=== PATIENT | male | born 1940 | race Caucasian/White ===

== ENCOUNTER 2017-05-09 09:11 | Outpatient (CLI) | payer MEDICARE ==
[2017-05-09 11:29] LABS: BILIRUBIN,URINE NEGATIVE (NEGATIVE); PH,URINE 6.5 PH (5.0-7.5)
[2017-05-09 11:41] LABS: ALBUMIN/GLOBULIN RATIO 1.3 (1.0-2.2); BILIRUBIN,TOTAL 0.9 mg/dL (0.2-1.0); BUN - BLOOD UREA NITROGEN 26 mg/dL (6-20); CALCIUM 8.9 mg/dL (8.5-10.3); CARBON DIOXIDE - CO2 28 mmol/L (21-32); CHLORIDE 100 mmol/L (101-111); CHOL/HDL RATIO 3.2 (<5.0); CHOLESTEROL 188 mg/dL; CREATININE 1.1 mg/dL (0.6-1.2); GFR - MDRD 65 (>89); GLUCOSE 84 mg/dL (70-100); HDL CHOLESTEROL 59 mg/dL; LDL/HDL RATIO 1.9 (<3.6); POTASSIUM 4.1 mmol/L (3.5-5.0); SODIUM 136 mmol/L (135-145); TOTAL PROTEIN 6.9 g/dL (6.7-8.2); TRIGLYCERIDES 69 mg/dL; VLDL CHOLESTEROL 14 mg/dL; WBC,URINE 0-3 /HPF (0-3)
== END 2017-05-09 23:59 ==
LOC: LAB.F 09:11
PROVIDERS: ATTEND Family Medicine
DX: I10 Essential (primary) hypertension (principal)
CPT/HCPCS: 36415; 80053; 80061; 81001; 84153

== ENCOUNTER 2017-06-12 10:40 | Outpatient (CLI) | payer MEDICARE ==
[2017-06-12] MEDS ORDERED: IOPAMIDOL-300 100 ML VIAL IVP ONE (12:10)
--- NOTE | 2017-06-13 10:30 | CT Report ---
CT IVP: 06/12/2017 Patient has microscopic hematuria. TECHNIQUE: Noncontrast CT exam was done at 5 x 5 mm intervals in axial, coronal and sagittal reconst ruction images. The patient then received 100 mL of Isovue-300 IV. A CAT scan of the kidneys was ob tained during the corticomedullary phase and then a CAT scan of the urinary tract during the pyelogra m phase. FINDINGS: Noncontrast CT exam of the urinary tract showed no calculi within the urinary tract. Righ t kidney demonstrates two benign cysts in its upper pole, a small cyst measuring 0.6 cm, and a larger cyst measuring 3.9 cm. There is a third small cyst in the right kidney within its mid aspect measur ing 0.6 cm, the CT number of the noncontrast study and 8.9 on contrast enhanced study. Left kidney also shows several cysts. There are at least four cysts in the mid to inferior aspect of the left kidney. They measure 0.3 cm, 1.2 cm, 1.7 cm, and 3.6 cm. The two largest cysts have CT nu mbers of 10.5 and 8.7 on noncontrast exam and 6.5 and 10.5 on contrast enhanced exams. The CT number s of the cysts that can be measured all indicate that they are of benign etiology. Each pyelocalyceal system appears normal. The ureters also appear normal. Bladder appears normal. Patient's prostate appears to be at least mildly enlarged. Adrenal glands are normal. Liver, spleen, pancreas show no obvious abnormality. Gallbladder shows n o wall thickening. The common hepatic and common bile ducts appear normal. Periaortic and paracaval regions show vascular calcification in the abdominal aorta and its iliac bra nches. No aneurysm is seen. Bowel gas pattern demonstrates a small hiatal hernia in the inferior mediastinum. Small bowel appear s normal including the terminal ileum. Colon shows normal appendix. Sigmoid colon demonstrates mild diverticulosis. Bones demonstrate anterior spurring in the lumbar spine. As compared to patient's preceding exam from 08/23/2013, only changes noted are that there has been a n increase in size in the three largest renal cysts noted. On preceding exam, the largest cyst in th e right kidney measured 2.8 cm. The two largest cysts in the left kidney measured 1.5 cm and 1.6 cm, respectively. IMPRESSION: PRESENT EXAM SHOWS NO EXPLANATION FOR PATIENT'S HEMATURIA. IT DEMONSTRATES THE FOLLOWIN . SEVERAL BENIGN CYSTS ARE NOTED IN EACH KIDNEY. THREE OF THESE CYSTS APPEAR LARGER THAN ON PRECED ING EXAM DATED 08/23/2013. 2. MILD TO MODERATE PROSTATIC ENLARGEMENT, UNCHANGED COMPARED TO PRECEDING EXAM. 3. SMALL HIATAL HERNIA. JOB #: [id number] EXT JOB #:[id number]
== END 2017-06-12 10:41 | disposition home or self-care (01) ==
LOC: LAB 10:40
PROVIDERS: ATTEND Family Medicine
DX: R31.9 Hematuria, unspecified (principal); Q61.02 Congenital multiple renal cysts; K44.9 Diaphragmatic hernia without obstruction or gangrene
CPT/HCPCS: 36415; 74178; 82565; Q9967

== ENCOUNTER 2018-05-19 08:14 | Outpatient (CLI) | payer MEDICARE ==
[2018-05-19 10:57] LABS: BILIRUBIN,URINE NEGATIVE (NEGATIVE); GLUCOSE, URINE (UA) NEGATIVE (NEGATIVE); KETONES,URINE (UA) NEGATIVE (NEGATIVE); LEUKOCYTE ESTERASE, URINE NEGATIVE (NEGATIVE); NITRITE,URINE NEGATIVE (NEGATIVE); OCCULT BLOOD,URINE TRACE-INTA (NEGATIVE); PH,URINE 6.5 PH (5.0-7.5); PROTEIN,URINE NEGATIVE (NEGATIVE); UROBILINOGEN,URINE 0.2 (NORMAL) E.U./dL (NORMAL)
[2018-05-19 11:09] LABS: ALBUMIN 3.8 g/dL (3.2-5.5); ALBUMIN/GLOBULIN RATIO 1.2 (1.0-2.2); ALKALINE PHOSPHATASE 52 IU/L (42-121); ALT ALANINE AMINOTRANSFERASE 15 IU/L (10-60); AST ASPARTATE AMINOTRANSFERASE 19 IU/L (10-42); BILIRUBIN,TOTAL 0.8 mg/dL (0.2-1.0); BUN - BLOOD UREA NITROGEN 19 mg/dL (6-20); CALCIUM 8.8 mg/dL (8.5-10.3); CARBON DIOXIDE - CO2 28 mmol/L (21-32); CHLORIDE 101 mmol/L (101-111); CHOL/HDL RATIO 2.7 (<5.0); CHOLESTEROL 164 mg/dL; CREATININE 0.9 mg/dL (0.6-1.2); GFR - MDRD 82 (>89); GLUCOSE 90 mg/dL (70-100); HDL CHOLESTEROL 61 mg/dL; LDL CHOLESTEROL,CALCULATED 92 mg/dL; LDL/HDL RATIO 1.5 (<3.6); SODIUM 136 mmol/L (135-145); VLDL CHOLESTEROL 11 mg/dL
[2018-05-19 11:10] LABS: BACTERIA,URINE Few /HPF (None Seen); CLARITY,URINE CLEAR (CLEAR); RBC,URINE None Seen /HPF (0-5); SQUAMOUS EPITHELIAL CELL,UR MOD Squamous (<= Few)
== END 2018-05-19 08:15 | disposition home or self-care (01) ==
LOC: LAB.F 08:14
PROVIDERS: ATTEND Family Medicine
DX: C61 Malignant neoplasm of prostate (principal); I10 Essential (primary) hypertension; E78.5 Hyperlipidemia, unspecified
CPT/HCPCS: 36415; 80053; 80061; 81001; 83721; 84153

== ENCOUNTER 2018-07-06 08:03 | Outpatient (CLI) | payer MEDICARE ==
[2018-07-06 12:12] LABS: CALCIUM 9.3 mg/dL (8.5-10.3); CREATININE 0.9 mg/dL (0.6-1.2)
== END 2018-07-06 08:04 | disposition home or self-care (01) ==
LOC: LAB.F 08:03
PROVIDERS: ATTEND Family Medicine
DX: I10 Essential (primary) hypertension (principal)
CPT/HCPCS: 36415; 80048

== ENCOUNTER 2018-08-31 11:28 | Day surgery (SDC) | payer MEDICARE ==
[2018-08-31] MEDS ORDERED: LACTATED RINGERS 1,000 ML IV ONE ×2 (11:40)
[2018-08-31] MEDS ORDERED: MIDAZOLAM 2 MG/2 ML VIAL IVP ONE (12:36)
[2018-08-31] MEDS ORDERED: fentaNYL 100 MCG/2 ML VIAL IVP ONE (12:36)
[2018-08-31 13:42] VITALS: BP 118/75
== END 2018-08-31 11:29 | disposition home or self-care (01) ==
LOC: SDS 11:28
PROVIDERS: ATTEND Surgery
PROC: 0DJD8ZZ Inspection of Lower Intestinal Tract, Via Natural or Artificial Opening Endoscopic (ICD-10-PCS; principal; 2018-08-31 12:45)
DX: Z12.11 Encounter for screening for malignant neoplasm of colon (principal); I10 Essential (primary) hypertension; Z86.010 Personal history of colon polyps; K57.30 Diverticulosis of large intestine without perforation or abscess without bleeding; K64.8 Other hemorrhoids; E78.5 Hyperlipidemia, unspecified; Z85.46 Personal history of malignant neoplasm of prostate; Z87.891 Personal history of nicotine dependence
CPT/HCPCS: G0121; J7120

== ENCOUNTER 2018-12-19 15:11 | Emergency (ER) | payer MEDICARE ==
[2018-12-19] MEDS ORDERED: BUPIVACAINE 0.5% PF 10 ML VIAL SUBQ STA (15:52)
--- NOTE | 2018-12-19 15:55 | ED Physician Documentation ---
PD HPI UPPER EXT INJURY - Stated complaint Stated Complaint: LT MIDDLE FINGER VS SAW - Chief complaint Chief Complaint: Laceration - History obtained from History obtained from: Patient, Family - History of Present Illness Location: Left, Finger (ring) Type of injury: Laceration Where injury occurred: Home Timing - onset: Today Timing - duration: Minutes Timing - details: Abrupt onset, Still present Improved by: Rest, Immobilization Worsened by: Moving, Palpating Associated symptoms: No: Weakness, Numbness, Tingling Contributing factors: No: Anticoagulated Similar symptoms before: Has not had sx before Recently seen: Not recently seen - Additonal information Additional information: 78-year-old male was pushing a board through his table saw with his left hand when he pushed it a bit too far right into the blade and has a laceration of the left ring finger. He has a lot of maceration of the tissue and there is missing skin. Review of Systems Constitutional: denies: Fever Eyes: denies: Decreased vision Ears: denies: Ear pain Nose: denies: Congestion Throat: denies: Oral lesions / sores Respiratory: denies: Cough GI: denies: Vomiting Skin: reports: Laceration (s) Musculoskeletal: reports: Extremity pain. denies: Neck pain, Back pain PD PAST MEDICAL HISTORY - Past Medical History Past Medical History: Yes Cardiovascular: Hypertension, High cholesterol Respiratory: Asthma Endocrine/Autoimmune: None GI: Colon polyps : Benign prostate hypertrophy HEENT: Glaucoma Psych: None Musculoskeletal: None Derm: None - Past Surgical History Past Surgical History: Yes General: Colonoscopy Ortho: Arthroscopic surgery - Present Medications Home Medications: Ambulatory Orders Medication Instructions Recorded Confirmed Felodipine [Felodipine ER] 10 mg PO DAILY 12/20/13 08/31/18 Latanoprost 1 drops EACHEYE DAILY 12/20/13 08/31/18 Simvastatin 40 mg PO QPM 12/20/13 08/31/18 Timolol [Betimol] 1 drops EACHEYE BID 12/20/13 08/31/18 Losartan Potassium 25 mg PO DAILY 08/28/18 08/31/18 - Allergies Allergies/Adverse Reactions: Allergies Allergy/AdvReac Type Severity Reaction Status Date / Time epinephrine AdvReac Mild syncope Verified 12/21/13 20:45 - Social History Does the pt smoke?: No Smoking Status: Never smoker Does the pt drink ETOH?: Yes Does the pt have substance abuse?: No - Immunizations Immunizations are current?: Yes PD ED PE NORMAL - Vitals Vital signs reviewed: Yes (hypertensive) - General General: Alert and oriented X 3, No acute distress, Well developed/nourished - HEENT HEENT: Atraumatic, PERRL, EOMI - Respiratory Respiratory: No respiratory distress - Derm Derm: Normal color, Warm and dry, No rash - Extremities Extremities: No deformity, No edema, Other (There is maceration and laceration of tissue to the left ring finger over the distal plange palmar surface without involvment of the nail. ) - Neuro Neuro: Alert and oriented X 3, No motor deficit, No sensory deficit, Normal speech Eye Opening: Spontaneous Motor: Obeys Commands Verbal: Oriented GCS Score: 15 - Psych Psych: Normal mood, Normal affect Results - Vitals Vitals: Vital Signs - 24 hr 12/19/18 15:15 Temperature 36.0 C L Heart Rate 72 Respiratory 14 Rate Blood Pressure 148/72 H O2 Saturation 97 Oxygen O2 Source Room air Procedures - Laceration (location) left ring Length in cm: 3 Wound type: Stellate, Irregular, Flap, Superficial, Clean, Other (macerated and torn tissue with missing tissue.) Anesthesia: Marcaine 0.5%, OTH (digital block) Wound Preparation: Hibiclens, Irrigated copiously NS, Wound explored, To the base Skin layer closure: Nylon, Interrupted, Size #-0 - enter number (5-0), Sutures - enter # (6) Other: Patient tolerated well, No complications, Neurovascular intact, Dressing applied, Tetanus UTD Complexity: Simple PD MEDICAL DECISION MAKING - ED course Complexity details: considered differential, d/w patient, d/w family ED course: 78-year-old male with a macerated laceration to the left ring finger is sutured after placement of a digital block and there is tissue missing there is skin missing and most of this will have to heal by secondary intention. Departure - Departure Disposition: 01 Home, Self Care Clinical Impression: Laceration of left ring finger Qualifiers: Encounter type: initial encounter Damage to nail status: without damage Foreign body presence: without foreign body Qualified Code(s): S61.215A - Laceration without foreign body of left ring finger without damage to nail, initial encounter Condition: Stable Instructions: ED Laceration Hand Follow-Up: Marley Feng ARNP [Primary Care Provider] - Comments: Sutures will need to be removed in 7-10 days.
[2018-12-19 16:54] VITALS: BP 140/83
== END 2018-12-19 16:54 | disposition home or self-care (01) ==
LOC: ED 15:11
DX: S61.215A Laceration without foreign body of left ring finger without damage to nail, initial encounter (principal); W31.2XXA Contact with powered woodworking and forming machines, initial encounter; Y92.009 Unspecified place in unspecified non-institutional (private) residence as the place of occurrence of the external cause
CPT/HCPCS: 12002; 99282; 99283